=== PATIENT | male | born 1960 | race Caucasian/White ===

== ENCOUNTER 2018-02-13 13:07 | Inpatient (IN) | payer MEDICAID ==
[~2018-02-13] VITALS: Ht 170.2 cm; Wt 66.0 kg
[~2018-02-13 13:07] MED LIST: ARIP2TAB3 PO; CLIN-27 PO; MOT200T PO
[2018-02-13 13:53] LABS: CLARITY,URINE SLIGHTLY CLOUDY (Clear); GLUCOSE, URINE 100 mg/dl (Neg); KETONES,URINE TRACE mg/dl (Neg); LEUKOCYTE ESTERASE ,URINE NEGATIVE (Neg); OCCULT BLOOD,URINE NEGATIVE (Neg); PROTEIN,URINE 30 mg/dl (Neg)
[2018-02-13 14:26] LABS: BASOPHILS % (AUTO) 0.7 % (0-1); EOSINOPHILS # (AUTO) 0.5 X10'3 (0-0.9); EOSINOPHILS % (AUTO) 8.2 % (0-6); HEMATOCRIT 34.5 % (42.0-52.0); HEMOGLOBIN 11.8 g/dl (14.0-17.9); LYMPHOCYTES # (AUTO) 1.1 X10'3 (1.1-4.8); LYMPHOCYTES % (AUTO) 18.6 % (21-51); MEAN CORPUSCULAR HEMOGLOBIN 34.2 PG (27.0-31.0); MEAN CORPUSCULAR HGB CONC 34.1 % (33.0-36.5); MEAN CORPUSCULAR VOLUME 100.4 FL (78-98); MEAN PLATELET VOLUME 8.1 FL (7.4-10.4); MONOCYTES # (AUTO) 0.8 X10'3 (0-0.9); MONOCYTES % (AUTO) 12.9 % (2-12); NEUTROPHILS # (AUTO) 3.6 X10'3 (1.8-7.7); NEUTROPHILS % (AUTO) 59.6 % (42-75); PLATELET COUNT 99 X10'3 (140-440); RED BLOOD COUNT 3.44 X10'6 (4.70-6.10); RED CELL DISTRIBUTION WIDTH 15.9 % (11.5-14.5); WHITE BLOOD COUNT 6.1 X10'3 (4.5-11.0)
[2018-02-13 14:39] LABS: ALANINE AMINOTRANSFERASE 66 U/L (12-78); ALBUMIN 2.4 G/DL (3.4-5.0); ALBUMIN/GLOBULIN RATIO 0.5 (1.1-1.5); ALKALINE PHOSPHATASE 120 IU/L (46-116); ANION GAP 8 (8-16); ASPARTATE AMINO TRANSFERASE 106 U/L (10-37); BILIRUBIN,TOTAL 2.7 MG/DL (0.1-1.0); BLOOD UREA NITROGEN 13 MG/DL (7-18); BUN/CREATININE RATIO 15.9 (5.4-32.0); CALCIUM 8.3 MG/DL (8.5-10.1); CHLORIDE 104 MMOL/L (99-107); CREATININE 0.82 MG/DL (0.60-1.10); GLUCOSE 99 MG/DL (70-104); POTASSIUM 3.9 MMOL/L (3.5-5.1); SODIUM 138 MMOL/L (135-145); TOTAL CARBON DIOXIDE 25.7 MMOL/L (24-32); eGFR > 90 ML/MIN
[2018-02-13 14:52] LABS: COLOR,URINE AMBER (Yellow)
[2018-02-13 14:55] LABS: NITRITES, URINE UNABLE TO PERFORM (Neg)
[2018-02-13 14:56] LABS: MUCUS STRANDS MODERATE /LPF (Neg); SQUAMOUS EPITHELIAL CELL,UR FEW /LPF (FEW)
[2018-02-13 14:57] LABS: BACTERIA,URINE 1+ /HPF (Neg); RBC,URINE 0-2 /HPF (0-2); UA COLLECTION TYPE URINAL; WBC,URINE 0-4 /HPF (0-4)
[2018-02-13 15:33] LABS: INR 1.5 INR; PARTIAL THROMBOPLASTIN TIME 33 SECONDS (22-32)
[2018-02-13 15:42] LABS: ETHANOL < 0.010 GM/DL (0.0-0.010); LIPASE 132 U/L (73-393); MAGNESIUM 1.8 MG/DL (1.5-2.4)
[2018-02-13 15:45] LABS: URINE AMPHETAMINE SCREEN POSITIVE (Neg); URINE BARBITUATE SCREEN NEGATIVE (Neg); URINE BENZODIAZEPINES SCREEN NEGATIVE (Neg); URINE CANNABINOID SCREEN POSITIVE (Neg); URINE COCAINE SCREEN NEGATIVE (Neg); URINE METHADONE SCREEN NEGATIVE (Neg); URINE OPIATE SCREEN NEGATIVE (Neg); URINE PHENCYCLIDINE SCREEN NEGATIVE (Neg)
[2018-02-13] MEDS ORDERED: normal saline 1000ML IV soln IVB ONE (15:45)
[2018-02-13] MEDS ORDERED: iohexol 300mg/ml 100ml inj. ONE (16:08)
[2018-02-13] MEDS ORDERED: pantoprazole 40 MG vial IV ONE (16:35)
[2018-02-13] MEDS ORDERED: octreotide inj. 1,250 MCG in normal saline 250ml IV soln 250 ML IV ONE (17:20)
[2018-02-13 18:50] LABS: OCCULT BLOOD STOOL POSITIVE (Neg)
[2018-02-13] MEDS ORDERED: magnesium 4gm in 100ml NS 100 ML IV PRN (19:45)
[2018-02-13] MEDS ORDERED: acetaminophen 325mg tablet PO PRN (19:45)
[2018-02-13] MEDS ORDERED: ondansetron/PF 4mg/2ml inj IV PRN (19:45)
[2018-02-13] MEDS ORDERED: morphine 4 MG/ML inj SYRINge IV PRN (19:45)
[2018-02-13] MEDS ORDERED: magnesium 2GM in 50ml NS 50 ML IV PRN (19:45)
[2018-02-13] MEDS ORDERED: potassium Cl 20 mEq SR tablet PO PRN ×2 (19:45)
[2018-02-13] MEDS ORDERED: mag hydrox/Alum hydrox/simeth 30ml oral suspension PO PRN (19:45)
[2018-02-13] MEDS ORDERED: potassium Cl 40MEQ/NS 500ml 500 ML IV PRN ×2 (19:45)
[2018-02-13] MEDS ORDERED: magnesium hydroxide 30ml (MOM) UD suspension PO PRN (19:45)
[2018-02-13] MEDS: furosemide 40mg/4ml inj IV SCH (20:42)
[2018-02-13] MEDS: heparin, porcine 5000 units/ml vial SQ SCH (20:42)
[2018-02-13] MEDS: pantoprazole 40 MG vial IV SCH (20:43)
[2018-02-14 02:34] LABS: ANION GAP 5 (8-16); BLOOD UREA NITROGEN 11 MG/DL (7-18); BUN/CREATININE RATIO 12.5 (5.4-32.0); CALCIUM 7.7 MG/DL (8.5-10.1); CHLORIDE 108 MMOL/L (99-107); CREATININE 0.88 MG/DL (0.60-1.10); GLUCOSE 92 MG/DL (70-104); MAGNESIUM 1.4 MG/DL (1.5-2.4); SODIUM 139 MMOL/L (135-145); TOTAL CARBON DIOXIDE 26.1 MMOL/L (24-32); eGFR 89 ML/MIN
[2018-02-14 02:42] LABS: BASOPHILS % (AUTO) 0.4 % (0-1); EOSINOPHILS # (AUTO) 0.6 X10'3 (0-0.9); EOSINOPHILS % (AUTO) 13.1 % (0-6); HEMATOCRIT 31.7 % (42.0-52.0); LYMPHOCYTES # (AUTO) 1.3 X10'3 (1.1-4.8); LYMPHOCYTES % (AUTO) 26.7 % (21-51); MEAN CORPUSCULAR HEMOGLOBIN 35.2 PG (27.0-31.0); MEAN CORPUSCULAR HGB CONC 34.8 % (33.0-36.5); MEAN CORPUSCULAR VOLUME 101.4 FL (78-98); MONOCYTES # (AUTO) 0.5 X10'3 (0-0.9); NEUTROPHILS # (AUTO) 2.4 X10'3 (1.8-7.7); NEUTROPHILS % (AUTO) 48.8 % (42-75); PLATELET COUNT 74 X10'3 (140-440); RED BLOOD COUNT 3.13 X10'6 (4.70-6.10); RED CELL DISTRIBUTION WIDTH 15.5 % (11.5-14.5); WHITE BLOOD COUNT 4.9 X10'3 (4.5-11.0)
[2018-02-14 06:06] LABS: ANISOCYTOSIS 1+; PLATELET ESTIMATE DECREASED; TOTAL CELLS COUNTED 100
[2018-02-14] MEDS: K and/or MAG REPLACEMENT MC SCH (08:00)
[2018-02-14] MEDS: heparin, porcine 5000 units/ml vial SQ SCH ×2 (08:00→20:00)
[2018-02-14] MEDS: spironolactone 25 MG tablet PO SCH (08:04)
[2018-02-14] MEDS: furosemide 40mg/4ml inj IV SCH (08:04)
[2018-02-14] MEDS: pantoprazole 40 MG vial IV SCH ×2 (08:05→21:12)
[2018-02-14 12:30] VITALS: BP 124/85
[2018-02-14] MEDS: magnesium Cl slow-release 64mg tablet PO PRN (13:46)
[2018-02-14 18:00] VITALS: BP 127/84
[2018-02-14 22:00] VITALS: BP 112/71
[2018-02-15] VITALS (10 sets, daily range): BP systolic 104–124; BP diastolic 67–87
[2018-02-15 05:48] LABS: BASOPHILS % (AUTO) 0.6 % (0-1); EOSINOPHILS # (AUTO) 0.3 X10'3 (0-0.9); EOSINOPHILS % (AUTO) 6.6 % (0-6); HEMATOCRIT 31.3 % (42.0-52.0); LYMPHOCYTES # (AUTO) 0.8 X10'3 (1.1-4.8); LYMPHOCYTES % (AUTO) 16.6 % (21-51); MEAN CORPUSCULAR HGB CONC 35.1 % (33.0-36.5); MEAN CORPUSCULAR VOLUME 99.8 FL (78-98); MEAN PLATELET VOLUME 8.2 FL (7.4-10.4); MONOCYTES # (AUTO) 0.6 X10'3 (0-0.9); MONOCYTES % (AUTO) 12.4 % (2-12); NEUTROPHILS # (AUTO) 3.2 X10'3 (1.8-7.7); NEUTROPHILS % (AUTO) 63.8 % (42-75); PLATELET COUNT 77 X10'3 (140-440); RED BLOOD COUNT 3.14 X10'6 (4.70-6.10); RED CELL DISTRIBUTION WIDTH 15.1 % (11.5-14.5); WHITE BLOOD COUNT 5.1 X10'3 (4.5-11.0)
[2018-02-15 06:43] LABS: ALBUMIN 1.9 G/DL (3.4-5.0); ANION GAP 9 (8-16); BLOOD UREA NITROGEN 11 MG/DL (7-18); BUN/CREATININE RATIO 12.9 (5.4-32.0); CALCIUM 7.5 MG/DL (8.5-10.1); CHLORIDE 102 MMOL/L (99-107); CREATININE 0.85 MG/DL (0.60-1.10); GLUCOSE 94 MG/DL (70-104); MAGNESIUM 1.4 MG/DL (1.5-2.4); POTASSIUM 3.7 MMOL/L (3.5-5.1); SODIUM 136 MMOL/L (135-145); TOTAL CARBON DIOXIDE 25.4 MMOL/L (24-32); eGFR > 90 ML/MIN
[2018-02-15] MEDS: K and/or MAG REPLACEMENT MC SCH (08:00)
[2018-02-15] MEDS: heparin, porcine 5000 units/ml vial SQ SCH (08:00)
[2018-02-15] MEDS: pantoprazole 40 MG vial IV SCH ×2 (08:17→20:28)
[2018-02-15] MEDS: furosemide 40mg/4ml inj IV SCH (08:17)
[2018-02-15] MEDS: spironolactone 25 MG tablet PO SCH (08:17)
[2018-02-15] MEDS: magnesium Cl slow-release 64mg tablet PO PRN ×2 (08:18→20:27)
[2018-02-15] MEDS ORDERED: fentaNYL/PF 50MCG/1 ML 2ML syringe ONE (12:48)
[2018-02-15] MEDS ORDERED: LIDOcaine Viscous 15ml cup ONE (12:48)
[2018-02-15] MEDS ORDERED: MIDAZolam 5mg/ml 2ml vial ONE (12:48)
[2018-02-16 06:00] VITALS: BP 113/38
[2018-02-16 06:21] LABS: BASOPHILS % (AUTO) 0.9 % (0-1); EOSINOPHILS # (AUTO) 0.5 X10'3 (0-0.9); HEMOGLOBIN 10.5 g/dl (14.0-17.9); LYMPHOCYTES # (AUTO) 1.3 X10'3 (1.1-4.8); LYMPHOCYTES % (AUTO) 24.1 % (21-51); MEAN CORPUSCULAR HEMOGLOBIN 35.1 PG (27.0-31.0); MEAN CORPUSCULAR HGB CONC 34.9 % (33.0-36.5); MEAN CORPUSCULAR VOLUME 100.6 FL (78-98); MEAN PLATELET VOLUME 8.2 FL (7.4-10.4); MONOCYTES # (AUTO) 0.6 X10'3 (0-0.9); MONOCYTES % (AUTO) 11.5 % (2-12); NEUTROPHILS % (AUTO) 54.5 % (42-75); PLATELET COUNT 87 X10'3 (140-440); RED BLOOD COUNT 2.98 X10'6 (4.70-6.10); RED CELL DISTRIBUTION WIDTH 15.3 % (11.5-14.5); WHITE BLOOD COUNT 5.5 X10'3 (4.5-11.0)
[2018-02-16 06:47] LABS: ALBUMIN 1.8 G/DL (3.4-5.0); ANION GAP 8 (8-16); BLOOD UREA NITROGEN 16 MG/DL (7-18); BUN/CREATININE RATIO 18.4 (5.4-32.0); CALCIUM 7.5 MG/DL (8.5-10.1); CHLORIDE 105 MMOL/L (99-107); CREATININE 0.87 MG/DL (0.60-1.10); GLUCOSE 103 MG/DL (70-104); MAGNESIUM 1.6 MG/DL (1.5-2.4); POTASSIUM 3.6 MMOL/L (3.5-5.1); SODIUM 137 MMOL/L (135-145); TOTAL CARBON DIOXIDE 23.7 MMOL/L (24-32); eGFR 90 ML/MIN
[2018-02-16] MEDS: K and/or MAG REPLACEMENT MC SCH (08:00)
[2018-02-16] MEDS: furosemide 40mg/4ml inj IV SCH (08:13)
[2018-02-16] MEDS: pantoprazole 40 MG vial IV SCH (08:13)
[2018-02-16] MEDS: spironolactone 25 MG tablet PO SCH (08:13)
[2018-02-16 10:00] VITALS: BP 102/75
[2018-02-16] MEDS ORDERED: PROP10TA10 PO (12:25)
[2018-02-16] MEDS ORDERED: PANT-47 PO (12:25)
[2018-02-16] MEDS ORDERED: SPIR25TA3 PO (12:25)
[2018-02-16 19:00] VITALS: BP 116/74
[2018-02-16] MEDS: furosemide 40mg tablet PO SCH (20:45)
[2018-02-16] MEDS: pantoprazole 40mg Tablet.DR PO SCH (21:03)
[2018-02-16 22:00] VITALS: BP 115/78
[2018-02-17 05:28] LABS: BASOPHILS % (AUTO) 0.9 % (0-1); EOSINOPHILS # (AUTO) 0.4 X10'3 (0-0.9); EOSINOPHILS % (AUTO) 7.7 % (0-6); HEMATOCRIT 29.8 % (42.0-52.0); HEMOGLOBIN 10.4 g/dl (14.0-17.9); LYMPHOCYTES # (AUTO) 1.2 X10'3 (1.1-4.8); MEAN CORPUSCULAR HEMOGLOBIN 35.2 PG (27.0-31.0); MEAN CORPUSCULAR HGB CONC 34.8 % (33.0-36.5); MEAN PLATELET VOLUME 7.8 FL (7.4-10.4); MONOCYTES # (AUTO) 0.7 X10'3 (0-0.9); MONOCYTES % (AUTO) 13.1 % (2-12); NEUTROPHILS # (AUTO) 2.9 X10'3 (1.8-7.7); NEUTROPHILS % (AUTO) 55.3 % (42-75); PLATELET COUNT 77 X10'3 (140-440); RED BLOOD COUNT 2.95 X10'6 (4.70-6.10); RED CELL DISTRIBUTION WIDTH 15.5 % (11.5-14.5); WHITE BLOOD COUNT 5.3 X10'3 (4.5-11.0)
[2018-02-17 06:00] VITALS: BP 106/76
[2018-02-17 06:44] LABS: ALBUMIN 1.8 G/DL (3.4-5.0); ANION GAP 8 (8-16); BLOOD UREA NITROGEN 15 MG/DL (7-18); CALCIUM 7.6 MG/DL (8.5-10.1); CHLORIDE 105 MMOL/L (99-107); CREATININE 0.88 MG/DL (0.60-1.10); GLUCOSE 108 MG/DL (70-104); MAGNESIUM 1.5 MG/DL (1.5-2.4); POTASSIUM 3.7 MMOL/L (3.5-5.1); SODIUM 137 MMOL/L (135-145); TOTAL CARBON DIOXIDE 24.3 MMOL/L (24-32); eGFR 89 ML/MIN
[2018-02-17] MEDS: furosemide 40mg tablet PO SCH (08:00)
[2018-02-17] MEDS: K and/or MAG REPLACEMENT MC SCH (08:00)
[2018-02-17] MEDS: spironolactone 25 MG tablet PO SCH (08:30)
[2018-02-17] MEDS: pantoprazole 40mg Tablet.DR PO SCH ×2 (08:39→20:40)
[2018-02-17 10:00] VITALS: BP 124/84
[2018-02-17 18:30] VITALS: BP 123/83
[2018-02-17 22:00] VITALS: BP 122/87
[2018-02-18 04:20] LABS: BASOPHILS # (AUTO) 0.1 X10'3 (0-0.2); BASOPHILS % (AUTO) 0.9 % (0-1); EOSINOPHILS # (AUTO) 0.6 X10'3 (0-0.9); EOSINOPHILS % (AUTO) 9.3 % (0-6); HEMOGLOBIN 10.8 g/dl (14.0-17.9); LYMPHOCYTES # (AUTO) 1.5 X10'3 (1.1-4.8); LYMPHOCYTES % (AUTO) 24.6 % (21-51); MEAN CORPUSCULAR HEMOGLOBIN 35.2 PG (27.0-31.0); MEAN CORPUSCULAR HGB CONC 34.8 % (33.0-36.5); MEAN CORPUSCULAR VOLUME 101.2 FL (78-98); MEAN PLATELET VOLUME 8.2 FL (7.4-10.4); MONOCYTES # (AUTO) 0.6 X10'3 (0-0.9); MONOCYTES % (AUTO) 9.4 % (2-12); NEUTROPHILS # (AUTO) 3.4 X10'3 (1.8-7.7); NEUTROPHILS % (AUTO) 55.8 % (42-75); PLATELET COUNT 85 X10'3 (140-440); RED BLOOD COUNT 3.07 X10'6 (4.70-6.10); RED CELL DISTRIBUTION WIDTH 15.3 % (11.5-14.5)
[2018-02-18 04:29] LABS: ALBUMIN 1.9 G/DL (3.4-5.0); ANION GAP 5 (8-16); BLOOD UREA NITROGEN 14 MG/DL (7-18); BUN/CREATININE RATIO 15.2 (5.4-32.0); CALCIUM 7.7 MG/DL (8.5-10.1); CHLORIDE 102 MMOL/L (99-107); CREATININE 0.92 MG/DL (0.60-1.10); GLUCOSE 118 MG/DL (70-104); MAGNESIUM 1.5 MG/DL (1.5-2.4); POTASSIUM 3.5 MMOL/L (3.5-5.1); SODIUM 133 MMOL/L (135-145); TOTAL CARBON DIOXIDE 26.1 MMOL/L (24-32); eGFR 85 ML/MIN
[2018-02-18 06:00] VITALS: BP 113/78
[2018-02-18] MEDS: furosemide 40mg tablet PO SCH (08:00)
[2018-02-18] MEDS: pantoprazole 40mg Tablet.DR PO SCH ×2 (08:00→19:56)
[2018-02-18] MEDS: K and/or MAG REPLACEMENT MC SCH (08:00)
[2018-02-18] MEDS: spironolactone 25 MG tablet PO SCH (08:30)
[2018-02-18 10:00] VITALS: BP 121/84
[2018-02-18 18:00] VITALS: BP 130/74
[2018-02-18 22:00] VITALS: BP 131/90
[2018-02-19 06:00] VITALS: BP 112/78
[2018-02-19] MEDS: K and/or MAG REPLACEMENT MC SCH (08:00)
[2018-02-19] MEDS: spironolactone 25 MG tablet PO SCH (08:02)
[2018-02-19] MEDS: pantoprazole 40mg Tablet.DR PO SCH (08:02)
[2018-02-19] MEDS: furosemide 40mg tablet PO SCH (08:02)
[2018-02-19 11:14] VITALS: BP 125/74
[2018-02-19] MEDS ORDERED: LACT10SO7 PO ×2 (13:35→13:36)
== END 2018-02-19 16:10 | disposition home or self-care (01) | DRG 241 ==
LOC: ER 13:07 → ED HOLD 19:42 → ORTHO 4S 02-14 12:30
PROVIDERS: ADMIT Internal Medicine; ATTEND Internal Medicine
PROC: 0DJ08ZZ Inspection of Upper Intestinal Tract, Via Natural or Artificial Opening Endoscopic (ICD-10-PCS; 2018-02-10)
PROC: BW211ZZ Computerized Tomography (CT Scan) of Abdomen and Pelvis using Low Osmolar Contrast (ICD-10-PCS; principal; 2018-02-13)
DX: K29.71 Gastritis, unspecified, with bleeding (principal); D68.9 Coagulation defect, unspecified; R18.8 Other ascites; K76.6 Portal hypertension; D62 Acute posthemorrhagic anemia; D69.6 Thrombocytopenia, unspecified; E88.09 Other disorders of plasma-protein metabolism, not elsewhere classified; K72.90 Hepatic failure, unspecified without coma; B18.2 Chronic viral hepatitis C; D64.9 Anemia, unspecified; F17.210 Nicotine dependence, cigarettes, uncomplicated; I10 Essential (primary) hypertension; K20.9 Esophagitis, unspecified; K44.9 Diaphragmatic hernia without obstruction or gangrene; K31.89 Other diseases of stomach and duodenum; F15.90 Other stimulant use, unspecified, uncomplicated; F32.9 Major depressive disorder, single episode, unspecified; M79.89 Other specified soft tissue disorders; N48.89 Other specified disorders of penis; K40.90 Unilateral inguinal hernia, without obstruction or gangrene, not specified as recurrent; K57.30 Diverticulosis of large intestine without perforation or abscess without bleeding; K74.60 Unspecified cirrhosis of liver; I85.00 Esophageal varices without bleeding; Z88.6 Allergy status to analgesic agent; Z79.899 Other long term (current) drug therapy; Z79.01 Long term (current) use of anticoagulants; Z79.82 Long term (current) use of aspirin
CPT/HCPCS: 36415; 71045; 74177; 80048; 80053; 80305; 80320; 81001; 82103; 82272; 83605; 83690; 83735; 83880; 84484; 85025; 85610; 85730; 86885; 86900; 86901; 87040; 87070; 93005; 96365; 96366; 96375; 97116; 97162; 99285; A4620; A6212; A6213; C9113; G0500; J1644; J1940; J2250; J2270; J2354; J3010; J7030; Q9967

== ENCOUNTER 2018-02-25 11:09 | Inpatient (IN) | payer MEDICAID ==
[~2018-02-25] VITALS: Ht 170.2 cm; Wt 87.0 kg
[~2018-02-25 11:09] MED LIST changes: -CLIN-27 PO; +LACT10SO7 PO; -MOT200T PO; +PANT-47 PO; +PROP10TA10 PO; +SPIR25TA3 PO
[2018-02-25 12:32] LABS: BASOPHILS % (AUTO) 0.9 % (0-1); EOSINOPHILS # (AUTO) 0.5 X10'3 (0-0.9); EOSINOPHILS % (AUTO) 9.5 % (0-6); HEMATOCRIT 33.3 % (42.0-52.0); HEMOGLOBIN 11.4 g/dl (14.0-17.9); LYMPHOCYTES # (AUTO) 1.2 X10'3 (1.1-4.8); LYMPHOCYTES % (AUTO) 21.3 % (21-51); MEAN CORPUSCULAR HEMOGLOBIN 34.1 PG (27.0-31.0); MEAN CORPUSCULAR HGB CONC 34.1 % (33.0-36.5); MEAN PLATELET VOLUME 7.6 FL (7.4-10.4); MONOCYTES # (AUTO) 0.7 X10'3 (0-0.9); MONOCYTES % (AUTO) 12.5 % (2-12); NEUTROPHILS # (AUTO) 3.1 X10'3 (1.8-7.7); NEUTROPHILS % (AUTO) 55.8 % (42-75); PLATELET COUNT 113 X10'3 (140-440); RED BLOOD COUNT 3.33 X10'6 (4.70-6.10); RED CELL DISTRIBUTION WIDTH 16.1 % (11.5-14.5); WHITE BLOOD COUNT 5.5 X10'3 (4.5-11.0)
[2018-02-25 12:44] LABS: INR 1.4 INR; PARTIAL THROMBOPLASTIN TIME 35 SECONDS (22-32); PROTHROMBIN TIME 14.7 SECONDS (9.0-12.0)
[2018-02-25 12:49] LABS: ALANINE AMINOTRANSFERASE 60 U/L (12-78); ALBUMIN 2.4 G/DL (3.4-5.0); ALBUMIN/GLOBULIN RATIO 0.5 (1.1-1.5); ALKALINE PHOSPHATASE 138 IU/L (46-116); ANION GAP 11 (8-16); ASPARTATE AMINO TRANSFERASE 95 U/L (10-37); BILIRUBIN,TOTAL 2.8 MG/DL (0.1-1.0); BLOOD UREA NITROGEN 12 MG/DL (7-18); BUN/CREATININE RATIO 12.1 (5.4-32.0); CHLORIDE 104 MMOL/L (99-107); CREATININE 0.99 MG/DL (0.60-1.10); GLUCOSE 132 MG/DL (70-104); MAGNESIUM 1.6 MG/DL (1.5-2.4); POTASSIUM 3.1 MMOL/L (3.5-5.1); SODIUM 139 MMOL/L (135-145); TOTAL CARBON DIOXIDE 24.5 MMOL/L (24-32); eGFR 78 ML/MIN
[2018-02-25] MEDS ORDERED: potassium Cl oral solution 20 MEQ/15 ML PO ONE (13:10)
[2018-02-25 15:38] LABS: CLARITY,URINE CLEAR (Clear); COLOR,URINE AMBER (Yellow); GLUCOSE, URINE NEGATIVE (Neg); KETONES,URINE TRACE mg/dl (Neg); LEUKOCYTE ESTERASE ,URINE NEGATIVE (Neg); NITRITES, URINE POSITIVE (Neg); OCCULT BLOOD,URINE NEGATIVE (Neg); PH,URINE 5.5 (4.8-8.0); PROTEIN,URINE TRACE mg/dl (Neg); UA COLLECTION TYPE URINAL
[2018-02-25 16:02] LABS: BACTERIA,URINE FEW /HPF (Neg); RBC,URINE NONE SEEN /HPF (0-2); SQUAMOUS EPITHELIAL CELL,UR FEW /LPF (FEW); WBC,URINE 0-4 /HPF (0-4)
[2018-02-25 16:03] LABS: MUCUS STRANDS MODERATE /LPF (Neg)
[2018-02-25] MEDS ORDERED: LIDOcaine 2% 10ml TOPICAL JELLY (Urojet) MM ONE (16:05)
[2018-02-25] MEDS ORDERED: CHOL10002 PO (16:44)
[2018-02-25] MEDS ORDERED: LEVO25TA2 PO (16:44)
[2018-02-25] MEDS ORDERED: FURO-150 PO (16:44)
[2018-02-25] MEDS ORDERED: ALBU18HF2 INH (16:44)
[2018-02-25] MEDS ORDERED: magnesium 4gm in 100ml NS 100 ML IV PRN (17:10)
[2018-02-25] MEDS ORDERED: magnesium Cl slow-release 64mg tablet PO PRN (17:10)
[2018-02-25] MEDS ORDERED: potassium Cl 20 mEq SR tablet PO PRN (17:10)
[2018-02-25] MEDS ORDERED: mag hydrox/Alum hydrox/simeth 30ml oral suspension PO PRN (17:10)
[2018-02-25] MEDS ORDERED: potassium Cl 40MEQ/NS 500ml 500 ML IV PRN ×2 (17:10)
[2018-02-25] MEDS ORDERED: ondansetron/PF 4mg/2ml inj IV PRN (17:10)
[2018-02-25] MEDS ORDERED: magnesium 2GM in 50ml NS 50 ML IV PRN (17:10)
[2018-02-25] MEDS ORDERED: magnesium hydroxide 30ml (MOM) UD suspension PO PRN (17:10)
[2018-02-25] MEDS ORDERED: acetaminophen 325mg tablet PO PRN (17:10)
[2018-02-25] MEDS ORDERED: dextrose 50%-water 50ml dispensing syringe IV PRN (17:10)
[2018-02-25] MEDS ORDERED: LORazepam 2 mg/ml vial IV PRN (17:10)
[2018-02-25] MEDS ORDERED: albuterol 2.5 MG/3 ML nebule NEB PRN (17:30)
[2018-02-25] MEDS: furosemide 40mg/4ml inj IV SCH ×2 (17:45→20:39)
[2018-02-25] MEDS: CefTRIAXone/D5W-Rocephin 1gm 50 ML IV SCH (17:45)
[2018-02-25] MEDS: K and/or MAG REPLACEMENT MC SCH (17:54)
[2018-02-25 18:52] LABS: HEMOGLOBIN A1C 4.6 % (4.5-6.2)
[2018-02-25] MEDS: lactulose 20gm/30ml cup PO SCH (20:39)
[2018-02-25] MEDS: propranolol 10mg tablet PO SCH (20:39)
[2018-02-26] MEDS: potassium Cl 20 mEq SR tablet PO PRN ×2 (06:39→10:35)
[2018-02-26 07:00] LABS: BASOPHILS # (AUTO) 0.1 X10'3 (0-0.2); EOSINOPHILS # (AUTO) 0.4 X10'3 (0-0.9); HEMATOCRIT 33.3 % (42.0-52.0); HEMOGLOBIN 11.5 g/dl (14.0-17.9); LYMPHOCYTES # (AUTO) 0.9 X10'3 (1.1-4.8); LYMPHOCYTES % (AUTO) 15.8 % (21-51); MEAN CORPUSCULAR HEMOGLOBIN 34.7 PG (27.0-31.0); MEAN CORPUSCULAR HGB CONC 34.6 % (33.0-36.5); MEAN CORPUSCULAR VOLUME 100.3 FL (78-98); MEAN PLATELET VOLUME 7.9 FL (7.4-10.4); MONOCYTES # (AUTO) 0.8 X10'3 (0-0.9); MONOCYTES % (AUTO) 12.7 % (2-12); NEUTROPHILS # (AUTO) 3.8 X10'3 (1.8-7.7); NEUTROPHILS % (AUTO) 64.5 % (42-75); PLATELET COUNT 112 X10'3 (140-440); RED BLOOD COUNT 3.32 X10'6 (4.70-6.10); RED CELL DISTRIBUTION WIDTH 16.3 % (11.5-14.5); WHITE BLOOD COUNT 5.9 X10'3 (4.5-11.0)
[2018-02-26 07:02] LABS: INR 1.5 INR
[2018-02-26 07:15] LABS: % IRON SATURATION 37 % (11-46); IRON 93 UG/DL (53-167); TOTAL IRON BINDING CAPACITY 252 UG/DL (259-388)
[2018-02-26 07:28] LABS: ALANINE AMINOTRANSFERASE 54 U/L (12-78); ALBUMIN 2.2 G/DL (3.4-5.0); ALBUMIN/GLOBULIN RATIO 0.5 (1.1-1.5); ALKALINE PHOSPHATASE 112 IU/L (46-116); ANION GAP 9 (8-16); ASPARTATE AMINO TRANSFERASE 82 U/L (10-37); BLOOD UREA NITROGEN 16 MG/DL (7-18); BUN/CREATININE RATIO 17.2 (5.4-32.0); CALCIUM 8.1 MG/DL (8.5-10.1); CHLORIDE 105 MMOL/L (99-107); CHOL/HDL RATIO 4.4 (0.00-4.99); CHOLESTEROL 96 MG/DL (0-200); CREATININE 0.93 MG/DL (0.60-1.10); GLUCOSE 99 MG/DL (70-104); HDL CHOLESTEROL 22 MG/DL (35-60); LDL CHOLESTEROL 50 MG/DL (50-100); MAGNESIUM 1.7 MG/DL (1.5-2.4); POTASSIUM 3.5 MMOL/L (3.5-5.1); SODIUM 140 MMOL/L (135-145); TOTAL CARBON DIOXIDE 25.6 MMOL/L (24-32); TOTAL PROTEIN 6.9 G/DL (6.4-8.2); TRIGLYCERIDES 57 MG/DL (20-135); eGFR 84 ML/MIN
[2018-02-26 07:36] LABS: FERRITIN 117 NG/ML (26-388)
[2018-02-26] MEDS: K and/or MAG REPLACEMENT MC SCH (08:00)
[2018-02-26] MEDS: spironolactone 25 MG tablet PO SCH ×2 (10:07→10:12)
[2018-02-26] MEDS: thiamine 100mg tablet PO SCH (10:12)
[2018-02-26] MEDS: folic acid 1mg tablet PO SCH (10:12)
[2018-02-26] MEDS: furosemide 40mg/4ml inj IV SCH ×2 (10:13→20:12)
[2018-02-26] MEDS: lactulose 20gm/30ml cup PO SCH ×2 (10:13→20:15)
[2018-02-26] MEDS: levoTHYROXINE 75mcg tablet PO SCH (10:13)
[2018-02-26] MEDS: multivitamins, therapeutics tablet PO SCH (10:14)
[2018-02-26] MEDS: pantoprazole 40mg Tablet.DR PO SCH (10:14)
[2018-02-26] MEDS: CefTRIAXone/D5W-Rocephin 1gm 50 ML IV SCH (10:17)
[2018-02-26] MEDS: propranolol 10mg tablet PO SCH ×2 (10:59→20:13)
[2018-02-26 11:00] VITALS: BP 119/81
[2018-02-26 15:00] VITALS: BP 122/80
[2018-02-26 19:00] VITALS: BP 118/81
[2018-02-26] MEDS: LORazepam 1 MG tablet PO PRN (20:13)
[2018-02-26 23:00] VITALS: BP 103/72
[2018-02-27 03:25] VITALS: BP 118/73
[2018-02-27 05:30] VITALS: BP 106/76
[2018-02-27 05:32] LABS: BASOPHILS # (AUTO) 0.1 X10'3 (0-0.2); BASOPHILS % (AUTO) 0.9 % (0-1); EOSINOPHILS # (AUTO) 0.4 X10'3 (0-0.9); EOSINOPHILS % (AUTO) 6.2 % (0-6); HEMATOCRIT 31.9 % (42.0-52.0); LYMPHOCYTES # (AUTO) 1.5 X10'3 (1.1-4.8); LYMPHOCYTES % (AUTO) 24.1 % (21-51); MEAN CORPUSCULAR HEMOGLOBIN 34.9 PG (27.0-31.0); MEAN CORPUSCULAR HGB CONC 34.6 % (33.0-36.5); MEAN CORPUSCULAR VOLUME 100.7 FL (78-98); MEAN PLATELET VOLUME 7.8 FL (7.4-10.4); MONOCYTES # (AUTO) 0.8 X10'3 (0-0.9); MONOCYTES % (AUTO) 14.1 % (2-12); NEUTROPHILS # (AUTO) 3.3 X10'3 (1.8-7.7); NEUTROPHILS % (AUTO) 54.7 % (42-75); PLATELET COUNT 107 X10'3 (140-440); RED BLOOD COUNT 3.16 X10'6 (4.70-6.10); RED CELL DISTRIBUTION WIDTH 15.7 % (11.5-14.5)
[2018-02-27 05:41] LABS: INR 1.5 INR; PROTHROMBIN TIME 15.7 SECONDS (9.0-12.0)
[2018-02-27 06:00] LABS: ALANINE AMINOTRANSFERASE 48 U/L (12-78); ALBUMIN 1.9 G/DL (3.4-5.0); ALBUMIN/GLOBULIN RATIO 0.4 (1.1-1.5); ALKALINE PHOSPHATASE 81 IU/L (46-116); ANION GAP 10 (8-16); ASPARTATE AMINO TRANSFERASE 69 U/L (10-37); BILIRUBIN,TOTAL 3.2 MG/DL (0.1-1.0); BLOOD UREA NITROGEN 20 MG/DL (7-18); BUN/CREATININE RATIO 24.1 (5.4-32.0); CHLORIDE 107 MMOL/L (99-107); CREATININE 0.83 MG/DL (0.60-1.10); GLUCOSE 99 MG/DL (70-104); MAGNESIUM 1.6 MG/DL (1.5-2.4); POTASSIUM 3.2 MMOL/L (3.5-5.1); SODIUM 142 MMOL/L (135-145); TOTAL CARBON DIOXIDE 24.6 MMOL/L (24-32); TOTAL PROTEIN 6.2 G/DL (6.4-8.2); eGFR > 90 ML/MIN
[2018-02-27] MEDS: lactulose 20gm/30ml cup PO SCH ×2 (07:33→20:06)
[2018-02-27] MEDS: furosemide 40mg/4ml inj IV SCH ×2 (07:36→20:08)
[2018-02-27] MEDS: levoTHYROXINE 75mcg tablet PO SCH (07:36)
[2018-02-27] MEDS: potassium Cl 20 mEq SR tablet PO PRN ×3 (07:36→16:47)
[2018-02-27] MEDS: thiamine 100mg tablet PO SCH (07:37)
[2018-02-27] MEDS: propranolol 10mg tablet PO SCH ×2 (07:37→20:05)
[2018-02-27] MEDS: spironolactone 25 MG tablet PO SCH (07:37)
[2018-02-27] MEDS: folic acid 1mg tablet PO SCH (07:37)
[2018-02-27] MEDS: pantoprazole 40mg Tablet.DR PO SCH (07:37)
[2018-02-27] MEDS: CefTRIAXone/D5W-Rocephin 1gm 50 ML IV SCH (07:43)
[2018-02-27] MEDS: multivitamins, therapeutics tablet PO SCH (07:43)
[2018-02-27] MEDS: K and/or MAG REPLACEMENT MC SCH (08:00)
[2018-02-27 11:00] VITALS: BP 106/73
[2018-02-27 15:00] VITALS: BP 125/88
[2018-02-27 19:00] VITALS: BP 120/77
[2018-02-27] MEDS: LORazepam 1 MG tablet PO PRN (20:06)
[2018-02-27] MEDS: lactobacillus rhamnosus 10,000 MMU CELLS/CAPSULE PO SCH (20:06)
[2018-02-27 23:00] VITALS: BP 96/70
[2018-02-28 03:00] VITALS: BP 101/59
[2018-02-28 05:52] LABS: BASOPHILS # (AUTO) 0.1 X10'3 (0-0.2); BASOPHILS % (AUTO) 0.9 % (0-1); EOSINOPHILS # (AUTO) 0.5 X10'3 (0-0.9); EOSINOPHILS % (AUTO) 7.9 % (0-6); HEMATOCRIT 31.2 % (42.0-52.0); HEMOGLOBIN 10.8 g/dl (14.0-17.9); LYMPHOCYTES # (AUTO) 1.5 X10'3 (1.1-4.8); LYMPHOCYTES % (AUTO) 23.2 % (21-51); MEAN CORPUSCULAR HEMOGLOBIN 34.8 PG (27.0-31.0); MEAN CORPUSCULAR HGB CONC 34.8 % (33.0-36.5); MEAN CORPUSCULAR VOLUME 100.2 FL (78-98); MEAN PLATELET VOLUME 7.9 FL (7.4-10.4); MONOCYTES # (AUTO) 0.9 X10'3 (0-0.9); MONOCYTES % (AUTO) 14.4 % (2-12); NEUTROPHILS # (AUTO) 3.5 X10'3 (1.8-7.7); NEUTROPHILS % (AUTO) 53.6 % (42-75); PLATELET COUNT 100 X10'3 (140-440); RED BLOOD COUNT 3.11 X10'6 (4.70-6.10); RED CELL DISTRIBUTION WIDTH 15.9 % (11.5-14.5); WHITE BLOOD COUNT 6.4 X10'3 (4.5-11.0)
[2018-02-28 06:00] VITALS: BP 117/90
[2018-02-28 06:14] LABS: INR 1.5 INR; PROTHROMBIN TIME 15.5 SECONDS (9.0-12.0)
[2018-02-28 06:37] LABS: ALANINE AMINOTRANSFERASE 45 U/L (12-78); ALBUMIN 1.9 G/DL (3.4-5.0); ALBUMIN/GLOBULIN RATIO 0.5 (1.1-1.5); ALKALINE PHOSPHATASE 79 IU/L (46-116); ANION GAP 10 (8-16); ASPARTATE AMINO TRANSFERASE 70 U/L (10-37); BILIRUBIN,TOTAL 2.7 MG/DL (0.1-1.0); BLOOD UREA NITROGEN 20 MG/DL (7-18); CALCIUM 7.8 MG/DL (8.5-10.1); CHLORIDE 108 MMOL/L (99-107); CREATININE 0.87 MG/DL (0.60-1.10); GLUCOSE 93 MG/DL (70-104); MAGNESIUM 1.5 MG/DL (1.5-2.4); POTASSIUM 3.4 MMOL/L (3.5-5.1); SODIUM 142 MMOL/L (135-145); TOTAL CARBON DIOXIDE 23.8 MMOL/L (24-32); TOTAL PROTEIN 6.1 G/DL (6.4-8.2); eGFR 90 ML/MIN
[2018-02-28 07:13] LABS: LARGE PLATELETS FEW; PLATELET ESTIMATE DECREASED
[2018-02-28] MEDS: lactulose 20gm/30ml cup PO SCH ×2 (08:00→20:00)
[2018-02-28] MEDS: propranolol 10mg tablet PO SCH ×2 (08:00→20:57)
[2018-02-28] MEDS: K and/or MAG REPLACEMENT MC SCH (08:00)
[2018-02-28] MEDS: levoTHYROXINE 75mcg tablet PO SCH (08:12)
[2018-02-28] MEDS: pantoprazole 40mg Tablet.DR PO SCH (08:12)
[2018-02-28] MEDS: folic acid 1mg tablet PO SCH (08:12)
[2018-02-28] MEDS: thiamine 100mg tablet PO SCH (08:13)
[2018-02-28] MEDS: lactobacillus rhamnosus 10,000 MMU CELLS/CAPSULE PO SCH ×2 (08:13→20:56)
[2018-02-28] MEDS: spironolactone 25 MG tablet PO SCH (08:13)
[2018-02-28] MEDS: multivitamins, therapeutics tablet PO SCH (08:13)
[2018-02-28] MEDS: CefTRIAXone/D5W-Rocephin 1gm 50 ML IV SCH (08:14)
[2018-02-28] MEDS: furosemide 40mg/4ml inj IV SCH (08:15)
[2018-02-28] MEDS: LORazepam 1 MG tablet PO PRN ×2 (08:29→13:10)
[2018-02-28] MEDS: potassium Cl 20 mEq SR tablet PO PRN ×2 (08:30→13:10)
[2018-02-28 11:00] VITALS: BP 119/78
[2018-02-28 15:00] VITALS: BP 115/78
[2018-02-28 19:00] VITALS: BP 112/80
[2018-02-28] MEDS ORDERED: potassium Cl 20 mEq SR tablet PO PRN ×2 (19:10)
[2018-02-28] MEDS ORDERED: magnesium 2GM in 50ml NS 50 ML IV PRN (19:10)
[2018-02-28] MEDS ORDERED: magnesium 4gm in 100ml NS 100 ML IV PRN (19:10)
[2018-02-28] MEDS ORDERED: potassium Cl 40MEQ/NS 500ml 500 ML IV PRN ×2 (19:10)
[2018-02-28] MEDS ORDERED: magnesium Cl slow-release 64mg tablet PO PRN (19:10)
[2018-02-28] MEDS: potassium Cl 20 mEq SR tablet PO SCH (20:57)
[2018-02-28] MEDS: magnesium Cl slow-release 64mg tablet PO SCH (20:58)
[2018-02-28] MEDS: furosemide 10 MG/1 ML 10ml inj IV SCH (21:01)
[2018-02-28] MEDS: HYDROcodone/acetaminophen 5mg/325mg tablet PO PRN (21:04)
[2018-02-28 23:00] VITALS: BP 108/72
[2018-03-01] MEDS: LORazepam 1 MG tablet PO PRN ×3 (00:26→13:58)
[2018-03-01 03:00] VITALS: BP 107/83
[2018-03-01 05:49] LABS: BASOPHILS % (AUTO) 0.7 % (0-1); EOSINOPHILS # (AUTO) 0.8 X10'3 (0-0.9); EOSINOPHILS % (AUTO) 12.5 % (0-6); HEMATOCRIT 29.6 % (42.0-52.0); HEMOGLOBIN 10.2 g/dl (14.0-17.9); LYMPHOCYTES # (AUTO) 1.6 X10'3 (1.1-4.8); LYMPHOCYTES % (AUTO) 25.3 % (21-51); MEAN CORPUSCULAR HEMOGLOBIN 34.6 PG (27.0-31.0); MEAN CORPUSCULAR HGB CONC 34.4 % (33.0-36.5); MEAN CORPUSCULAR VOLUME 100.4 FL (78-98); MEAN PLATELET VOLUME 7.5 FL (7.4-10.4); MONOCYTES # (AUTO) 0.8 X10'3 (0-0.9); MONOCYTES % (AUTO) 13.1 % (2-12); NEUTROPHILS # (AUTO) 3.1 X10'3 (1.8-7.7); NEUTROPHILS % (AUTO) 48.4 % (42-75); PLATELET COUNT 93 X10'3 (140-440); RED BLOOD COUNT 2.94 X10'6 (4.70-6.10); RED CELL DISTRIBUTION WIDTH 16.1 % (11.5-14.5); WHITE BLOOD COUNT 6.4 X10'3 (4.5-11.0)
[2018-03-01 06:00] VITALS: BP 98/74
[2018-03-01 06:01] LABS: INR 1.5 INR; PROTHROMBIN TIME 15.4 SECONDS (9.0-12.0)
[2018-03-01 06:11] LABS: ALANINE AMINOTRANSFERASE 43 U/L (12-78); ALBUMIN 1.8 G/DL (3.4-5.0); ALBUMIN/GLOBULIN RATIO 0.5 (1.1-1.5); ALKALINE PHOSPHATASE 95 IU/L (46-116); ANION GAP 8 (8-16); ASPARTATE AMINO TRANSFERASE 66 U/L (10-37); BILIRUBIN,TOTAL 1.8 MG/DL (0.1-1.0); BLOOD UREA NITROGEN 21 MG/DL (7-18); BUN/CREATININE RATIO 21.2 (5.4-32.0); CALCIUM 7.7 MG/DL (8.5-10.1); CHLORIDE 109 MMOL/L (99-107); CREATININE 0.99 MG/DL (0.60-1.10); GLUCOSE 123 MG/DL (70-104); MAGNESIUM 1.6 MG/DL (1.5-2.4); POTASSIUM 3.8 MMOL/L (3.5-5.1); SODIUM 143 MMOL/L (135-145); TOTAL CARBON DIOXIDE 25.7 MMOL/L (24-32); TOTAL PROTEIN 5.8 G/DL (6.4-8.2); eGFR 78 ML/MIN
[2018-03-01 06:41] LABS: LARGE PLATELETS FEW; PLATELET ESTIMATE DECREASED
[2018-03-01] MEDS: thiamine 100mg tablet PO SCH (07:58)
[2018-03-01] MEDS: levoTHYROXINE 75mcg tablet PO SCH (07:58)
[2018-03-01] MEDS: pantoprazole 40mg Tablet.DR PO SCH (07:58)
[2018-03-01] MEDS: lactobacillus rhamnosus 10,000 MMU CELLS/CAPSULE PO SCH ×2 (07:58→20:12)
[2018-03-01] MEDS: folic acid 1mg tablet PO SCH (07:59)
[2018-03-01] MEDS: potassium Cl 20 mEq SR tablet PO SCH ×2 (07:59→20:12)
[2018-03-01] MEDS: lactulose 20gm/30ml cup PO SCH ×2 (08:00→20:12)
[2018-03-01] MEDS: K and/or MAG REPLACEMENT MC SCH (08:00)
[2018-03-01] MEDS: magnesium Cl slow-release 64mg tablet PO SCH ×3 (08:00→20:13)
[2018-03-01] MEDS: propranolol 10mg tablet PO SCH ×2 (08:00→20:12)
[2018-03-01] MEDS: multivitamins, therapeutics tablet PO SCH (08:00)
[2018-03-01] MEDS: CefTRIAXone/D5W-Rocephin 1gm 50 ML IV SCH (08:01)
[2018-03-01] MEDS: furosemide 10 MG/1 ML 10ml inj IV SCH ×2 (08:05→20:10)
[2018-03-01] MEDS: spironolactone 25 MG tablet PO SCH (08:05)
[2018-03-01] MEDS ORDERED: albumin (human) 25% 100 ML IV solution IV ONE (17:00)
[2018-03-01 18:00] VITALS: BP 106/66
[2018-03-02] VITALS: BP 104/70
[2018-03-02 05:18] LABS: BASOPHILS # (AUTO) 0.1 X10'3 (0-0.2); EOSINOPHILS # (AUTO) 0.7 X10'3 (0-0.9); EOSINOPHILS % (AUTO) 11.7 % (0-6); HEMOGLOBIN 9.9 g/dl (14.0-17.9); LYMPHOCYTES # (AUTO) 1.4 X10'3 (1.1-4.8); LYMPHOCYTES % (AUTO) 24.1 % (21-51); MEAN CORPUSCULAR HEMOGLOBIN 34.9 PG (27.0-31.0); MEAN CORPUSCULAR HGB CONC 34.2 % (33.0-36.5); MEAN CORPUSCULAR VOLUME 102.2 FL (78-98); MEAN PLATELET VOLUME 7.8 FL (7.4-10.4); MONOCYTES # (AUTO) 0.8 X10'3 (0-0.9); MONOCYTES % (AUTO) 13.7 % (2-12); NEUTROPHILS # (AUTO) 2.8 X10'3 (1.8-7.7); NEUTROPHILS % (AUTO) 49.5 % (42-75); PLATELET COUNT 90 X10'3 (140-440); RED BLOOD COUNT 2.83 X10'6 (4.70-6.10); RED CELL DISTRIBUTION WIDTH 15.5 % (11.5-14.5); WHITE BLOOD COUNT 5.7 X10'3 (4.5-11.0)
[2018-03-02 05:32] LABS: INR 1.5 INR; PROTHROMBIN TIME 15.5 SECONDS (9.0-12.0)
[2018-03-02 05:44] LABS: ALANINE AMINOTRANSFERASE 42 U/L (12-78); ALBUMIN 2.4 G/DL (3.4-5.0); ALBUMIN/GLOBULIN RATIO 0.7 (1.1-1.5); ALKALINE PHOSPHATASE 104 IU/L (46-116); ANION GAP 7 (8-16); ASPARTATE AMINO TRANSFERASE 62 U/L (10-37); BILIRUBIN,TOTAL 1.7 MG/DL (0.1-1.0); BLOOD UREA NITROGEN 18 MG/DL (7-18); BUN/CREATININE RATIO 19.4 (5.4-32.0); CHLORIDE 109 MMOL/L (99-107); CREATININE 0.93 MG/DL (0.60-1.10); GLUCOSE 131 MG/DL (70-104); MAGNESIUM 1.6 MG/DL (1.5-2.4); POTASSIUM 3.8 MMOL/L (3.5-5.1); SODIUM 143 MMOL/L (135-145); TOTAL CARBON DIOXIDE 27.3 MMOL/L (24-32); eGFR 84 ML/MIN
[2018-03-02 07:52] VITALS: BP 114/86
[2018-03-02] MEDS: K and/or MAG REPLACEMENT MC SCH (08:00)
[2018-03-02] MEDS: lactulose 20gm/30ml cup PO SCH ×2 (08:00→20:00)
[2018-03-02] MEDS: CefTRIAXone/D5W-Rocephin 1gm 50 ML IV SCH (09:59)
[2018-03-02] MEDS: furosemide 10 MG/1 ML 10ml inj IV SCH ×2 (10:05→21:21)
[2018-03-02] MEDS: thiamine 100mg tablet PO SCH (10:05)
[2018-03-02] MEDS: lactobacillus rhamnosus 10,000 MMU CELLS/CAPSULE PO SCH ×2 (10:06→21:21)
[2018-03-02] MEDS: levoTHYROXINE 75mcg tablet PO SCH (10:06)
[2018-03-02] MEDS: spironolactone 25 MG tablet PO SCH (10:06)
[2018-03-02] MEDS: pantoprazole 40mg Tablet.DR PO SCH (10:06)
[2018-03-02] MEDS: potassium Cl 20 mEq SR tablet PO SCH ×2 (10:06→21:20)
[2018-03-02] MEDS: propranolol 10mg tablet PO SCH ×2 (10:06→21:19)
[2018-03-02] MEDS: multivitamins, therapeutics tablet PO SCH (10:07)
[2018-03-02] MEDS: magnesium Cl slow-release 64mg tablet PO SCH ×3 (10:07→21:20)
[2018-03-02] MEDS: folic acid 1mg tablet PO SCH (10:08)
[2018-03-02 12:00] VITALS: BP 117/81
[2018-03-02 20:00] VITALS: BP 119/79
[2018-03-02 23:00] VITALS: BP 126/88
[2018-03-02 23:11] LABS: CLARITY,URINE CLEAR (Clear); COLOR,URINE AMBER (Yellow); GLUCOSE, URINE NEGATIVE (Neg); KETONES,URINE NEGATIVE (Neg); LEUKOCYTE ESTERASE ,URINE NEGATIVE (Neg); NITRITES, URINE NEGATIVE (Neg); OCCULT BLOOD,URINE LARGE (Neg); PH,URINE 7.5 (4.8-8.0); PROTEIN,URINE 30 mg/dl (Neg)
[2018-03-02 23:21] LABS: UA COLLECTION TYPE FOLEY CATH
[2018-03-02 23:26] LABS: BACTERIA,URINE NONE SEEN /HPF (Neg); MUCUS STRANDS FEW /LPF (Neg); RBC,URINE 50-100 /HPF (0-2); SQUAMOUS EPITHELIAL CELL,UR NONE SEEN /LPF (FEW)
[2018-03-03] MEDS ORDERED: oxyCODONE IR 5mg (immed. release) tablet PO ONE (05:45)
[2018-03-03 07:00] VITALS: BP 116/80
[2018-03-03] MEDS: pantoprazole 40mg Tablet.DR PO SCH (07:56)
[2018-03-03] MEDS: propranolol 10mg tablet PO SCH ×2 (07:56→20:00)
[2018-03-03] MEDS: levoTHYROXINE 75mcg tablet PO SCH (07:57)
[2018-03-03] MEDS: lactobacillus rhamnosus 10,000 MMU CELLS/CAPSULE PO SCH ×2 (07:57→22:12)
[2018-03-03] MEDS: lactulose 20gm/30ml cup PO SCH ×4 (07:57→22:12)
[2018-03-03] MEDS: potassium Cl 20 mEq SR tablet PO SCH ×2 (07:57→22:14)
[2018-03-03] MEDS: multivitamins, therapeutics tablet PO SCH (07:57)
[2018-03-03] MEDS: thiamine 100mg tablet PO SCH (07:57)
[2018-03-03] MEDS: magnesium Cl slow-release 64mg tablet PO SCH ×3 (07:58→22:10)
[2018-03-03] MEDS: spironolactone 25 MG tablet PO SCH (07:58)
[2018-03-03] MEDS: furosemide 10 MG/1 ML 10ml inj IV SCH ×3 (07:58→22:09)
[2018-03-03] MEDS: CefTRIAXone/D5W-Rocephin 1gm 50 ML IV SCH (07:58)
[2018-03-03] MEDS: folic acid 1mg tablet PO SCH (07:58)
[2018-03-03] MEDS: K and/or MAG REPLACEMENT MC SCH (08:00)
[2018-03-03 11:00] VITALS: BP 112/76
[2018-03-03 20:00] VITALS: BP 102/81
[2018-03-04] VITALS: BP 138/75
[2018-03-04] MEDS: HYDROcodone/acetaminophen 5mg/325mg tablet PO PRN (00:15)
[2018-03-04 06:00] VITALS: BP 106/76
[2018-03-04] MEDS: propranolol 10mg tablet PO SCH ×2 (08:00→21:00)
[2018-03-04] MEDS: folic acid 1mg tablet PO SCH (08:00)
[2018-03-04] MEDS: levoTHYROXINE 75mcg tablet PO SCH (08:00)
[2018-03-04] MEDS: K and/or MAG REPLACEMENT MC SCH (08:00)
[2018-03-04] MEDS: CefTRIAXone/D5W-Rocephin 1gm 50 ML IV SCH (08:00)
[2018-03-04] MEDS: pantoprazole 40mg Tablet.DR PO SCH (08:00)
[2018-03-04] MEDS: thiamine 100mg tablet PO SCH (08:00)
[2018-03-04] MEDS: potassium Cl 20 mEq SR tablet PO SCH ×2 (08:00→21:00)
[2018-03-04] MEDS: lactobacillus rhamnosus 10,000 MMU CELLS/CAPSULE PO SCH ×2 (08:00→21:01)
[2018-03-04] MEDS: lactulose 20gm/30ml cup PO SCH ×3 (08:00→21:01)
[2018-03-04] MEDS: magnesium Cl slow-release 64mg tablet PO SCH ×3 (08:00→21:00)
[2018-03-04] MEDS: multivitamins, therapeutics tablet PO SCH (08:00)
[2018-03-04] MEDS: furosemide 10 MG/1 ML 10ml inj IV SCH ×3 (08:00→21:01)
[2018-03-04] MEDS: spironolactone 25 MG tablet PO SCH (08:30)
[2018-03-04 11:00] VITALS: BP 111/70
[2018-03-04] MEDS ORDERED: oxyCODONE IR 5mg (immed. release) tablet PO ONE ×3 (19:55→20:55)
[2018-03-04 20:00] VITALS: BP 113/75
[2018-03-05] VITALS: BP 108/74
[2018-03-05 07:00] VITALS: BP 90/63
[2018-03-05] MEDS: K and/or MAG REPLACEMENT MC SCH (08:00)
[2018-03-05 09:30] VITALS: BP 107/73
[2018-03-05] MEDS: CefTRIAXone/D5W-Rocephin 1gm 50 ML IV SCH (09:32)
[2018-03-05] MEDS: furosemide 10 MG/1 ML 10ml inj IV SCH (09:33)
[2018-03-05] MEDS: folic acid 1mg tablet PO SCH (09:33)
[2018-03-05] MEDS: lactobacillus rhamnosus 10,000 MMU CELLS/CAPSULE PO SCH (09:33)
[2018-03-05] MEDS: spironolactone 25 MG tablet PO SCH (09:34)
[2018-03-05] MEDS: lactulose 20gm/30ml cup PO SCH (09:34)
[2018-03-05] MEDS: levoTHYROXINE 75mcg tablet PO SCH (09:34)
[2018-03-05] MEDS: multivitamins, therapeutics tablet PO SCH (09:40)
[2018-03-05] MEDS: potassium Cl 20 mEq SR tablet PO SCH (09:41)
[2018-03-05] MEDS: pantoprazole 40mg Tablet.DR PO SCH (09:41)
[2018-03-05] MEDS: propranolol 10mg tablet PO SCH (09:41)
[2018-03-05] MEDS: thiamine 100mg tablet PO SCH (09:42)
[2018-03-05] MEDS: magnesium Cl slow-release 64mg tablet PO SCH (09:42)
[2018-03-05 11:24] VITALS: BP 111/87
[2018-03-05] MEDS ORDERED: MULT-1179 PO (12:19)
[2018-03-05] MEDS ORDERED: LACT10SO7 PO (17:46)
== END 2018-03-05 15:05 | disposition home health service (06) | DRG 280 ==
LOC: ER 11:09 → ED HOLD 17:07 → PCU 3S 02-26 11:00 → CMPBEDREQ 02-26 23:21 → SUR 3N 03-01 09:00
PROVIDERS: ADMIT Family Medicine; ATTEND Family Medicine
DX: K70.30 Alcoholic cirrhosis of liver without ascites (principal); I95.9 Hypotension, unspecified; L03.115 Cellulitis of right lower limb; E11.65 Type 2 diabetes mellitus with hyperglycemia; L03.116 Cellulitis of left lower limb; I10 Essential (primary) hypertension; E88.09 Other disorders of plasma-protein metabolism, not elsewhere classified; E51.2 Wernicke's encephalopathy; B19.20 Unspecified viral hepatitis C without hepatic coma; E87.6 Hypokalemia; E03.9 Hypothyroidism, unspecified; F32.9 Major depressive disorder, single episode, unspecified; R33.9 Retention of urine, unspecified; F10.10 Alcohol abuse, uncomplicated; F15.10 Other stimulant abuse, uncomplicated; F17.210 Nicotine dependence, cigarettes, uncomplicated; N50.89 Other specified disorders of the male genital organs; Z83.3 Family history of diabetes mellitus; Z91.14 Patient's other noncompliance with medication regimen; Z88.5 Allergy status to narcotic agent
CPT/HCPCS: 36415; 71045; 76775; 80053; 80061; 81001; 82140; 82607; 82728; 82746; 83036; 83540; 83550; 83605; 83735; 84145; 84443; 84480; 85025; 85610; 85730; 87040; 87070; 87088; 93306; 97110; 97116; 97161; 97530; 99285; A4315; A4414; A6213; A6449; J0696; J1940; J7030; P9047